=== PATIENT | female | born 1955 | race Caucasian/White ===

== ENCOUNTER 2017-03-04 16:25 | Emergency (ER) | payer OTHER ==
[2017-03-04 16:30] VITALS: BP 158/89
--- NOTE | 2017-03-04 17:20 | UC ---
Tracie Ellis Alfonso, scribed for Gerardo Thorpe MD on 03/04/17 at 1702 . Shortness of Breath HPI - HPI Summary HPI Summary: This patient is a 62 year old F presenting to [facility] accompanied by male with a chief complaint of SOB for a few weeks. She reports the SOB is intermittent and it feels really heavy and I am not pulling in enough with deep breaths and it feels like I do not have enough air. Symptoms aggravated by nothing and alleviated by spontaneous resolution. Patient reports diaphoresis, chest pressure, lightheadedness (aggravated by position change), near syncope, hand numbness, and insomnia. Patient denies fever, chills, coughing, calf pain, calf swelling, cyanosis, weight loss, weight gain, slurred speech, and extremity weakness. She denies recent travel, recent immobilization of broken bones, and recent sick contacts. She has not had a stress test. Denies PMHx of asthma, COPD , CAD, HTN, cardiomegaly, and CHF. - History of Current Complaint Chief Complaint: UCRespiratory Stated Complaint: SOB,NUMBNESS, LIGHTHEADEDNESS Time Seen by Provider: 03/04/17 16:44 Hx Obtained From: Patient Onset/Duration: Sudden Onset, Lasting Weeks, Still Present Timing: Intermittent Episodes Lasting: Current Severity: Moderate Aggrevating Factors: Nothing Alleviating Factors: Spontaneous Resolution Associated Signs & Symptoms: Positive: Other - Patient reports diaphoresis, chest pressure, lightheadedness (aggravated by position change), near syncope, hand numbness, and insomnia. Patient denies fever, chills, coughing, calf pain, calf swelling, blue skin google, weight loss, weight gain, slurred speech, and extremity weakness. - Allergy/Home Medications Allergies/Adverse Reactions: Allergies Allergy/AdvReac Type Severity Reaction Status Date / Time No Known Allergies Allergy Verified 03/04/17 16:30 Home Medications: Home Medications Calcium Carbonate-Cholecalcife [Calcium 1000 + D] 1 tab PO 03/04/17 [History] Pantoprazole TAB (NF) [Protonix TAB (NF)] 20 mg PO DAILY 03/04/17 [History Confirmed 03/04/17] PMH/Surg Hx/FS Hx/Imm Hx Other Cardiovascular History: No CAD, HTN, cardiomegaly, and CHF. Other Respiratory History: No Asthma, COPD - Surgical History Surgical History: Yes Surgery Procedure, Year, and Place: cone bx - Family History Known Family History: Positive: Cardiac Disease, Other - Lung cancer. - Social History Alcohol Use: Daily Substance Use Type: None Smoking Status (MU): Never Smoked Tobacco Review of Systems Constitutional: Other - Positive diaphoresis; negative fever, chills Skin: Other - Negative cyanosis. Respiratory: Shortness Of Breath, Other - Negative cough Cardiovascular: Other - Positive chest pressure Musculoskeletal: Other: - Negative weight gain, weight loss. Neurological: Other - Positive lightheadedness, near syncope, hand numbness, and insomnia; negative slurred speech, and extremity weakness. All Other Systems Reviewed And Are Negative: Yes Physical Exam Triage Information Reviewed: Yes Vital Signs: Initial Vital Signs Temp 98.7 F 03/04/17 16:26 Pulse 81 03/04/17 16:26 Resp 18 03/04/17 16:26 BP 158/89 03/04/17 16:26 Pulse Ox 100 03/04/17 16:26 Vital Signs Reviewed: Yes - Additional Comments The patient is well-nourished in no acute distress and in no acute pain. The skin is warm and dry and skin color reflects adequate perfusion. HEENT: The head is normocephalic and atraumatic. The pupils are equal and reactive. The conjunctivae are clear and without drainage. Nares are patent and without drainage. Mouth reveals moist mucous membranes and the throat is without erythema and exudate. The external ears are intact. The ear canals are patent and without drainage. The tympanic membranes are intact. Neck is supple with full range of motion and non-tender. There are no carotid bruits. There is no neck vein distension. Thyroid not enlarged. Respiratory: Chest is non-tender. Lungs are clear to auscultation and breath sounds are symmetrical and equal. No rales, rhonchi, or wheezing. Cardiovascular: Heart is regular rate and rhythm. There is no murmur or rub auscultated. There is no peripheral edema and pulses are symmetrical and equal. Abdomen: The abdomen is soft and non-tender. There are normal bowel sounds heard in all four quadrants and there is no organomegaly palpated. Musculoskeletal: There is no back pain noted. Extremities are non-tender with full range of motion. There is 2 second capillary refill. There is no peripheral edema or calf tenderness elicited. Neurological: Patient is alert and oriented to person, place and time. The patient has symmetrical motor strength in all four extremities. Cranial nerves are grossly intact. Psychiatric: The patient has an appropriate affect and does not exhibit any anxiety or depression. Diagnostics - EKG Cardiac Rate: NL - BPM 67 Cardiac Rhythm: Sinus: Normal - 1628. Normal [place]. No ST elevation. Shortness of Breath Dx - Course Course Of Treatment: This patient is a 62 year old F presenting to [facility] accompanied by male with a chief complaint of SOB for a few weeks. She reports the SOB is intermittent and it feels really heavy and I am not pulling in enough with deep breaths and it feels like I do not have enough air. Symptoms aggravated by nothing and alleviated by spontaneous resolution. Patient reports diaphoresis, chest pressure, lightheadedness (aggravated by position change), near syncope, hand numbness, and insomnia. Patient denies fever, chills, coughing, calf pain, calf swelling, cyanosis, weight loss, weight gain, slurred speech, and extremity weakness. She denies recent travel, recent immobilization of broken bones, and recent sick contacts. She has not had a stress test. Denies PMHx of asthma, COPD, CAD, HTN, cardiomegaly, and CHF. An EKG reveals NSR. Patient will present IMMEDIATELY TO THE EMERGENCY DEPARTMENT FOR FURTHER EVALUATION AND WORK UP OF YOUR SHORTNESS OF BREATH AND CHEST PRESSURE. The patient is agreeable with this plan. - Differential Dx/Diagnosis Differential Diagnosis/HQI/PQRI: Bronchitis - angina,, CHF, [place], Pneumonia, Pulmonary Embolism, Pulmonary Edema, Other - anemia, Provider Diagnoses: acute dyspnea, chest pressure Discharge - Discharge Plan Condition: Stable Disposition: [facility] Discharge Disposition Comment: [facility] EMERGENCY DEPARTMENT Patient Education Materials: Dyspnea (ED), Chest Pain (ED) Referrals: Holland Wild MD [Primary Care Provider] - 3 Days Additional Instructions: PRESENT IMMEDIATELY TO THE EMERGENCY DEPARTMENT FOR FURTHER EVALUATION AND WORK UP OF YOUR SHORTNESS OF BREATH AND CHEST PRESSURE. FOLLOW UP WITH PRIMARY CARE PROVIDER FOR HIGH BLOOD PRESSURE NOTED TODAY AT 158/89. The documentation as recorded by the Tracie vazquez Alfonso accurately reflects the service I personally performed and the decisions made by me, Gerardo Thorpe MD.
== END 2017-03-04 17:05 | disposition short-term general hospital (02) ==
LOC: UCEAST 16:25
DX: R06.00 Dyspnea, unspecified (principal); R07.89 Other chest pain; J44.9 Chronic obstructive pulmonary disease, unspecified; I25.10 Atherosclerotic heart disease of native coronary artery without angina pectoris; I11.0 Hypertensive heart disease with heart failure; I50.9 Heart failure, unspecified
CPT/HCPCS: 93005; 99211; G0463

== ENCOUNTER 2017-03-04 17:23 | Emergency (ER) | payer OTHER ==
[2017-03-04 18:15] LABS: Hematocrit 38 % (35-47); Hemoglobin 12.6 g/dl (12.0-16.0); Mean Corpuscular HGB Conc 33 g/dl (31-36); Mean Corpuscular Hemoglobin 32 pg (27-31); Mean Corpuscular Volume 97 fL (80-97); Mean Platelet Volume 8 um3 (7.4-10.4); Red Blood Count 3.93 10^6/ul (4.0-5.4); Red Cell Distribution Width 13 % (10.5-15); White Blood Count 5.8 10^3/ul (3.5-10.8)
--- NOTE | 2017-03-04 18:27 | RAD ---
Indication: Shortness of breath. Single frontal view of the chest performed at 1747 hours was reviewed. No prior study is available for comparison. No mediastinal shift is noted. Heart is of normal size and configuration. Lung monroe appear clear. IMPRESSION: NO ACTIVE CARDIOPULMONARY DISEASE IS NOTED.
[2017-03-04 18:31] LABS: Albumin 4.1 g/dL (3.2-5.2); Calcium 8.9 mg/dL (8.6-10.3); EGFR African American 80.1 (>60); EGFR Non-African American 62.3 (>60); Globulin 2.3 g/dL (2-4); Potassium 3.6 mmol/L (3.5-5.0); Total Bilirubin 0.9 mg/dL (0.2-1.0); Total Protein 6.4 g/dL (6.4-8.9)
[2017-03-04] MEDS ORDERED: Albuterol/Ipratropium NEB.SOL* Albuterol 2.5 MG/Ipratropium 0.5 MG 3 ML INH ONE (18:51)
[2017-03-04] MEDS ORDERED: Albuterol HFA INHALER* 8 gm MDI INH ONE (18:58)
--- NOTE | 2017-03-04 19:07 | ED ---
Johnna Ellis Rebecca, scribed for Adelaida Gonzalez MD on 03/04/17 at 1751 . Shortness of Breath - HPI Summary HPI Summary: Pt is a 62 y/o F who presents to ED from [facility] c/o SOB characterized as dyspnea at rest. Sx began approximately 1 month ago and have been intermittent since onset, gradually increasing in frequency. Pt reports it 'feels like I am not getting enough air." States there appears to be no pattern to onset of sx which are aggravated by nothing, alleviated by spontaneous resolution. Denies CP , cough, fever and wheezing. When sx began 1 month ago she was evaluated by her PCP who gave her a Dx of respiratory infection with Rx for steroids and Abx. Sx improved, then returned about 1 week later. No PMHx asthma, DVT, PE, CA. SHx non -smoker. No recent travel and has not been bed ridden recently. - History of Current Complaint Chief Complaint: EDShortnessOfBreath Time Seen by Provider: 03/04/17 17:31 Hx Obtained From: Patient Onset/Duration: Lasting Weeks - About 1 month Timing: Intermittent Episodes Lasting: Dyspnea At: Rest Aggrevating Factors: Nothing Alleviating Factors: Spontaneous Resolution Associated Signs & Symptoms: Negative - Allergy/Home Medications Allergies/Adverse Reactions: Allergies Allergy/AdvReac Type Severity Reaction Status Date / Time No Known Allergies Allergy Verified 03/04/17 16:30 PMH/Surg Hx/FS Hx/Imm Hx Endocrine/Hematology History: Denies: Hx Diabetes Cardiovascular History: Denies: Hx Hypertension Respiratory History: Denies: Hx Asthma, Hx Chronic Obstructive Pulmonary Disease (COPD) GI History: Reports: Hx Gastroesophageal Reflux Disease - Cancer History Hx Chemotherapy: No Hx Radiation Therapy: No - Surgical History Surgery Procedure, Year, and Place: cone bx Infectious Disease History: Denies: Traveled Outside the [place] in Last 30 Days - Family History Known Family History: Positive: Cardiac Disease, Other - Lung cancer. - Social History Lives: With Family Alcohol Use: Daily Substance Use Type: Reports: None Smoking Status (MU): Never Smoked Tobacco Review of Systems Negative: Fever Negative: Chest Pain Positive: Shortness Of Breath, Other - NEGATIVE: wheezing. Negative: Cough All Other Systems Reviewed And Are Negative: Yes Physical Exam - Summary Physical Exam Summary: General: Well appearing, no pain distress Skin: Warm, Skin Color Reflects Adequate Perfusion, Dry Eyes: EOMI, SANDY ENT: Pharynx normal, TMs normal Neck: Supple, nontender Respiratory: CTA, breath sounds present, no rhonchi, no wheezes, no rales Cardiovascular: RRR, no murmur, no rub, no gallop Abdomen: Soft, nontender, Non-distended, no guarding, no rebound Bowel: Present Musculoskeletal: CHARLIE, No edema Neuro: Sensory/motor intact, A&Ox3, CN intact 2-12 Psych: Affect/mood appropriate Triage Information Reviewed: Yes Vital Signs On Initial Exam: Initial Vitals Temp Pulse Resp BP Pulse Ox 98.4 F 71 20 132/82 99 03/04/17 17:24 03/04/17 17:24 03/04/17 17:24 03/04/17 17:24 03/04/17 17:24 Vital Signs Reviewed: Yes Diagnostics - Vital Signs Vital Signs Temp Pulse Resp BP Pulse Ox 03/04/17 17:24 98.4 F 71 20 132/82 99 - Laboratory Lab Results: Lab Results 03/04/17 03/04/17 03/04/17 Range/Units 18:06 18:06 18:06 WBC 5.8 (3.5-10.8) 10^3/ul RBC 3.93 L (4.0-5.4) 10^6/ul Hgb 12.6 (12.0-16.0) g/dl Hct 38 (35-47) % MCV 97 (80-97) fL MCH 32 H (27-31) pg MCHC 33 (31-36) g/dl RDW 13 (10.5-15) % Plt Count 296 (150-450) 10^3/ul MPV 8 (7.4-10.4) um3 Neut % (Auto) 70.1 (38-83) % Lymph % (Auto) 20.1 L (25-47) % [place] % (Auto) 6.9 (1-9) % Eos % (Auto) 2.2 (0-6) % Baso % (Auto) 0.7 (0-2) % Absolute Neuts (auto) 4.1 (1.5-7.7) 10^3/ul Absolute Lymphs (auto) 1.2 (1.0-4.8) 10^3/ul Absolute Monos (auto) 0.4 (0-0.8) 10^3/ul Absolute Eos (auto) 0.1 (0-0.6) 10^3/ul Absolute Basos (auto) 0 (0-0.2) 10^3/ul Absolute Nucleated RBC 0 10^3/ul Nucleated RBC % 0 D-Dimer, Quantitative (Less Than 230) ng/mL Sodium 137 (133-145) mmol/L Potassium 3.6 (3.5-5.0) mmol/L Chloride 105 (101-111) mmol/L Carbon Dioxide 25 (22-32) mmol/L Anion Gap 7 (2-11) mmol/L BUN 12 (6-24) mg/dL Creatinine 0.92 (0.51-0.95) mg/dL Est GFR ( Amer) 80.1 (>60) Est GFR (Non-Af Amer) 62.3 (>60) BUN/Creatinine Ratio 13.0 (8-20) Glucose 102 H (70-100) mg/dL Lactic Acid 0.7 (0.5-2.0) mmol/L Calcium 8.9 (8.6-10.3) mg/dL Total Bilirubin 0.90 (0.2-1.0) mg/dL AST 17 (13-39) U/L ALT 11 (7-52) U/L Alkaline Phosphatase 30 L (34-104) U/L Troponin I 0.00 (<0.04) ng/mL B-Natriuretic Peptide ( - 100) pg/mL Total Protein 6.4 (6.4-8.9) g/dL Albumin 4.1 (3.2-5.2) g/dL Globulin 2.3 (2-4) g/dL Albumin/Globulin Ratio 1.8 (1-3) 03/04/17 03/04/17 Range/Units 18:06 18:06 WBC (3.5-10.8) 10^3/ul RBC (4.0-5.4) 10^6/ul Hgb (12.0-16.0) g/dl Hct (35-47) % MCV (80-97) fL MCH (27-31) pg MCHC (31-36) g/dl RDW (10.5-15) % Plt Count (150-450) 10^3/ul MPV (7.4-10.4) um3 Neut % (Auto) (38-83) % Lymph % (Auto) (25-47) % [place] % (Auto) (1-9) % Eos % (Auto) (0-6) % Baso % (Auto) (0-2) % Absolute Neuts (auto) (1.5-7.7) 10^3/ul Absolute Lymphs (auto) (1.0-4.8) 10^3/ul Absolute Monos (auto) (0-0.8) 10^3/ul Absolute Eos (auto) (0-0.6) 10^3/ul Absolute Basos (auto) (0-0.2) 10^3/ul Absolute Nucleated RBC 10^3/ul Nucleated RBC % D-Dimer, Quantitative < 200 (Less Than 230) ng/mL Sodium (133-145) mmol/L Potassium (3.5-5.0) mmol/L Chloride (101-111) mmol/L Carbon Dioxide (22-32) mmol/L Anion Gap (2-11) mmol/L BUN (6-24) mg/dL Creatinine (0.51-0.95) mg/dL Est GFR ( Amer) (>60) Est GFR (Non-Af Amer) (>60) BUN/Creatinine Ratio (8-20) Glucose (70-100) mg/dL Lactic Acid (0.5-2.0) mmol/L Calcium (8.6-10.3) mg/dL Total Bilirubin (0.2-1.0) mg/dL AST (13-39) U/L ALT (7-52) U/L Alkaline Phosphatase (34-104) U/L Troponin I (<0.04) ng/mL B-Natriuretic Peptide 29 ( - 100) pg/mL Total Protein (6.4-8.9) g/dL Albumin (3.2-5.2) g/dL Globulin (2-4) g/dL Albumin/Globulin Ratio (1-3) Result Diagrams: 03/04/17 18:06 03/04/17 18:06 Lab Statement: Any lab studies that have been ordered have been reviewed, and results considered in the medical decision making process. - Radiology CXR Xray Interpretation: No Acute Changes - NO ACTIVE CARDIOPULMONARY DISEASE IS NOTED. Radiology Interpretation Completed By: Radiologist - EKG 1739 Cardiac Rate: NL - 67 bpm EKG Rhythm: Sinus Rhythm EKG Interpretation: No ST elevation EKG Comparison: No Significant Change - Unchanged from EKG on this date at 1628 Course/Dx - Course Course Of Treatment: 62 yo female with intermittent sob x 1mos, initially treated by pmd for bronchitis with prednisone and abx, which did help. Pt seen at urgent care and sent to rule out other eitiologies, ddimer, cxr, and labs neg. Pt started on beta agonist inhaler and steroid inhaler with a steroid burst that she can start to boost the process but knows it would be better to wait for the inhaled steroid to take action. She will need to followup with her pmd for more of a work up of these symptoms - Diagnoses Provider Diagnoses: Dyspnea Discharge - Discharge Plan Condition: Stable Disposition: HOME Prescriptions: Albuterol HFA INHALER* [Ventolin HFA Inhaler*] 1 puff INH Q4H PRN #1 mdi PRN Reason: Wheezing Budesonide Flexhaler 90 (NF) [Pulmicort Flexhaler 90 mcg/act (NF)] 2 puff INH BID #1 mdi predniSONE TAB* [Deltasone TAB*] 50 mg PO DAILY #5 tab The documentation as recorded by the Johnna vazquez Rebecca accurately reflects the service I personally performed and the decisions made by me, Adelaida Gonzalez MD.
[2017-03-04 19:42] VITALS: BP 104/65
== END 2017-03-04 19:40 | disposition home or self-care (01) ==
LOC: ED 17:23
DX: R06.00 Dyspnea, unspecified (principal); R06.02 Shortness of breath
CPT/HCPCS: 36415; 71010; 80053; 83605; 83880; 84484; 85025; 85379; 93005; 94640; 94760; 99283; A9270-GY

== ENCOUNTER 2018-08-04 07:43 | Emergency (ER) | payer OTHER ==
[2018-08-04 07:58] VITALS: BP 127/76
--- NOTE | 2018-08-04 12:47 | UC ---
Complaint Female HPI - HPI Summary HPI Summary: Started feeling urinary frequency, urgency, and discomfort. Mild flank ache earlier that is resolved now. Symptoms started yesterday, worsened last night. Denies fevers or vomiting. Pos hx of UTIs, this feels similar to infections she' s had in the past. - History Of Current Complaint Chief Complaint: UCGU Stated Complaint: URINARY FREQUENCY, PAIN Time Seen by Provider: 08/04/18 08:04 Hx Obtained From: Patient ?: No Onset/Duration: Gradual Onset, Lasting Hours Timing: Constant Severity Initially: Mild Severity Currently: Moderate Pain Intensity: 4 Character: Burning, Cramping Aggravating Factor(s): Urination Alleviating Factor(s): Nothing Associated Signs And Symptoms: Positive: Back Pain - Allergies/Home Medications Allergies/Adverse Reactions: Allergies Allergy/AdvReac Type Severity Reaction Status Date / Time No Known Allergies Allergy Verified 03/04/17 16:30 Home Medications: Home Medications Omeprazole 40 mg PO 08/04/18 [History] PMH/Surg Hx/FS Hx/Imm Hx GI/ History: Gastroesophageal Reflux Other GI/ History: hematuria, sees urologist - Surgical History Surgical History: Yes Surgery Procedure, Year, and Place: cone bx - Family History Known Family History: Positive: Cardiac Disease, Other - Lung cancer. - Social History Occupation: Employed Full-time Alcohol Use: Daily Substance Use Type: None Smoking Status (MU): Never Smoked Tobacco Review of Systems All Other Systems Reviewed And Are Negative: Yes Constitutional: Positive: Negative Skin: Positive: Negative Eyes: Positive: Negative ENT: Positive: Negative Respiratory: Positive: Negative Cardiovascular: Positive: Negative Gastrointestinal: Positive: Negative Genitourinary: Positive: Dysuria, Frequency, Urgency Motor: Positive: Negative Neurovascular: Positive: Negative Musculoskeletal: Positive: Negative Neurological: Positive: Negative Psychological: Positive: Negative Is Patient Immunocompromised?: No Physical Exam Triage Information Reviewed: Yes Appearance: Well-Appearing, No Pain Distress, Well-Nourished Vital Signs: Initial Vital Signs Temp 98.5 F 08/04/18 07:52 Pulse 71 08/04/18 07:52 Resp 18 08/04/18 07:52 BP 127/76 08/04/18 07:52 Pulse Ox 99 08/04/18 07:52 Vital Signs Reviewed: Yes Eye Exam: Normal Eyes: Positive: Conjunctiva Clear ENT Exam: Normal ENT: Positive: Normal ENT inspection, Hearing grossly normal, Pharynx normal, TMs normal Dental Exam: Normal Neck exam: Normal Respiratory Exam: Normal Respiratory: Positive: Chest non-tender, Lungs clear, Normal breath sounds, No respiratory distress, No accessory muscle use Cardiovascular Exam: Normal Cardiovascular: Positive: RRR, No Murmur Abdomen Description: Positive: Nontender. Negative: CVA Tenderness (R), CVA Tenderness (L) Musculoskeletal Exam: Normal Neurological Exam: Normal Neurological: Positive: Alert Psychological Exam: Normal Skin Exam: Normal Complaint Female Dx - Differential Dx/Diagnosis Provider Diagnosis: UTI (urinary tract infection), Elevated blood pressure reading in office without diagnosis of hypertension Discharge - Sign-Out/Discharge Documenting (check all that apply): Patient Departure All imaging exams completed and their final reports reviewed: No Studies - Discharge Plan Condition: Stable Disposition: HOME Prescriptions: Nitrofurantoin Monohyd/M-Cryst [Macrobid 100 mg Capsule] 100 mg PO BID #10 cap Patient Education Materials: Urinary Tract Infection in Women (ED) Referrals: Holland Wild MD [Primary Care Provider] - 1 Week Additional Instructions: Call or come back if symptoms worsen. If you are not significantly better by monday, please call to follow up on a culture. - Billing Disposition and Condition Condition: STABLE Disposition: Home - Attestation Statements Provider Attestation: I was available for consult. This patient was seen by the KRISTY. The patient was not presented to, seen by, or examined by me. -Tamir
== END 2018-08-04 08:18 | disposition home or self-care (01) ==
LOC: UCEAST 07:43
DX: N39.0 Urinary tract infection, site not specified (principal); R31.9 Hematuria, unspecified; Z87.440 Personal history of urinary (tract) infections; R03.0 Elevated blood-pressure reading, without diagnosis of hypertension; K21.9 Gastro-esophageal reflux disease without esophagitis
CPT/HCPCS: 81003; 87077; 87086; 87186; 99212; G0463